=== PATIENT | female | born 1980 | race African-American/Black ===

== ENCOUNTER 2016-11-19 21:40 | Emergency (ER) | payer MEDICAID, OTHER ==
[~2016-11-19] VITALS: Ht 157.5 cm; Wt 75.3 kg
[2016-11-19 22:04] VITALS: BP 147/99
--- NOTE | 2016-11-19 22:19 | Emergency Room Report ---
History of Present Illness General Chief Complaint: Abdominal Pain Source: Patient Present Illness HPI Is a 36-year-old female who is 9, para 3, who is approximately weeks by date. She has confirmation to her Dr. matute. She presents with chief complaint of vomiting. Unable to keep anything down today. No fever or chills. No diarrhea. Vomiting is nonbloody and nonbilious. She went to [facility] but was there for a long period time and signed out AMA. Denies any vaginal bleeding. Blood type is Rh+ so she didn't receive any RhoGAM shot before. Allergies: Coded Allergies: No Known Allergies (Unverified , 11/19/16) Patient History Past Medical History: see triage record, old chart reviewed Past Surgical History: other Pertinent Family History: none Social History: Denies: smoking Last Menstrual Period: 09/18/16 Now: Yes : 4 Para: 3 Immunizations: other Reviewed Nursing Documentation: PMH: Agreed, PSxH: Agreed Review of Systems Eye: Denies: blurred vision, eye pain ENT: Denies: ear pain, nose congestion, throat swelling Respiratory: Denies: cough, shortness of breath Cardiovascular: Denies: chest pain, palpitations Gastrointestinal: Reports: nausea, vomiting, Denies: abdominal pain, diarrhea Musculoskeletal: Denies: back pain, joint pain Skin: Denies: rash Neurological: Denies: headache, numbness Endocrine: Denies: increased thirst, increased urine Hematologic/Lymphatic: Denies: easy bruising All Other Systems: negative except mentioned in HPI Physical Exam Vital Signs Date Time Temp Pulse Resp B/P Pulse Ox O2 Delivery O2 Flow Rate FiO2 11/19/16 21:54 97.5 75 15 147/99 100 Room Air vitals unremarkable Sp02 EP Interpretation: reviewed, normal General Appearance: well appearing, no apparent distress, alert Head: normocephalic, atraumatic Eyes: bilateral eye EOMI, bilateral eye PERRL ENT: hearing grossly normal, normal pharynx Neck: full range of motion, supple, no meningismus Respiratory: chest non-tender, lungs clear, normal breath sounds Cardiovascular #1: regular rate, rhythm, no murmur Gastrointestinal: normal bowel sounds, non tender, no mass, no organomegaly, no bruit, non-distended Musculoskeletal: back normal, gait/station normal, normal range of motion Psychiatric: mood/affect normal Skin: warm/dry Procedures Additional Procedure Procedure Narrative Procedure: IV access Indication: Poor IV access Description: Her IV access infiltrated. She has poor IV access otherwise. Nursing staff unable to get an IV in her. I place an 18-gauge left external jugular IV. It aspirated easily. Flush easily. IV fluid and medication given to this. Patient tolerated procedure without a problem. Medical Decision Making Diagnostic Impression: Primary Impression: Hyperemesis gravidarum Additional Impression: Twin gestation in first trimester Qualified Codes: O30.091 - Twin , unable to determine number of placenta and number of amniotic sacs, first trimester ER Course Patient presents with hyperemesis gravidarum. She arty been to [facility] and had ultrasound her shortly gestation. I confirm that here. Blood work is unremarkable. She is dehydrated. [place] better after fluids and Zofran. No discharge from it better. Lab Results Impression labs unremarkable Last Vital Signs Date Time Temp Pulse Resp B/P Pulse Ox O2 Delivery O2 Flow Rate FiO2 11/19/16 21:54 97.5 75 15 147/99 100 Room Air Status: improved Disposition: HOME, SELF-CARE Condition: Stable Scripts Ondansetron (Zofran) 4 Mg Tablet 4 MG ORAL Q6H Y for Nausea & Vomiting, #30 TAB 0 Refills Prov: COOKIE DUDLEY M.D. 11/20/16 Additional Instructions: Followup with your ROCKET [employer]INE TESTER a week. Return for worsening symptoms or any concern. Eat small frequent meals. COOKIE DUDLEY M.D. Nov 19, 2016 22:19
[2016-11-19] MEDS: D5NS 1,000 ML IV SCH ×2 (22:51→23:16)
[2016-11-19 22:55] LABS: APPEARANCE,URINE CLEAR; KETONES,URINE 3+ (NEGATIVE); LEUKOCYTE ESTERASE ,URINE 1+ (NEGATIVE); NITRITE,URINE NEGATIVE (NEGATIVE); PH,URINE 6.5 (4.5-8.0); PROTEIN,URINE 2+ (NEGATIVE); UROBILINOGEN,URINE NORMAL MG/DL (0.0-1.0)
[2016-11-19 23:13] LABS: BACTERIA,URINE FEW /HPF; RBC,URINE 0-2 /HPF (0 - 2); SQUAMOUS EPITHELIAL CELL,UR FEW /LPF (NONE/OCC)
[2016-11-19 23:13] LABS: BASOPHILS % (AUTO) 0.5 % (0.0-2.0); EOSINOPHILS % (AUTO) 0.1 % (0.0-3.0); MEAN CORPUSCULAR HEMOGLOBIN 31.3 PG (27.0-31.0); MEAN CORPUSCULAR HGB CONC 33.9 G/DL (32.0-36.0); MEAN CORPUSCULAR VOLUME 92 FL (80-99); MEAN PLATELET VOLUME 7.1 FL (6.5-10.1); MONOCYTES % (AUTO) 3.8 % (1.0-10.0); NEUTROPHILS % (AUTO) 84.6 % (45.0-75.0); PLATELET COUNT 248 K/UL (150-450); RED CELL DISTRIBUTION WIDTH 11.4 % (11.6-14.8); WHITE BLOOD COUNT 12.5 K/UL (4.8-10.8)
[2016-11-19 23:21] LABS: ANION GAP 20 (5-15); CALCIUM 9.1 mg/dL (8.6-10.2); CARBON DIOXIDE 18 mEQ/L (20-30); CHLORIDE 91 mEQ/L (98-107); CREATININE 0.7 mg/dL (0.5-0.9); GLOMERULAR FILTRATION RATE > 60 mL/min (>60); HEMOLYSIS 5; POTASSIUM 3.5 mEQ/L (3.4-4.9); SODIUM 129 mEQ/L (135-145)
[2016-11-20] MEDS ORDERED: Morphine Sulfate 4mg/ml Inj IVP ONE (00:15)
[2016-11-20] MEDS: D5NS 1,000 ML IV SCH ×4 (00:17→03:09)
[2016-11-20] MEDS ORDERED: ZOFRAN4 MG ORAL (01:16)
[2016-11-20 03:10] VITALS: BP 143/90
== END 2016-11-20 03:13 | disposition home or self-care (01) ==
LOC: EMR 22:14
DX: O21.0 Mild hyperemesis gravidarum (principal); O30.041 Twin pregnancy, dichorionic/diamniotic, first trimester; Z3A.00 Weeks of gestation of pregnancy not specified
CPT/HCPCS: 36415; 80048; 81001; 84702; 85025; 86850; 86900; 86901; 96360; 96361; 96374; 96375; 99284; J2270; J2405

== ENCOUNTER 2017-02-01 17:42 | Emergency (ER) | payer OTHER ==
[~2017-02-01] VITALS: Ht 157.5 cm; Wt 74.8 kg
[~2017-02-01 17:42] MED LIST: ZOFRAN4 MG ORAL
[2017-02-01] MEDS ORDERED: FOLIC ACID0.4 MG ORAL (17:51)
[2017-02-01] MEDS ORDERED: PRENATAL DHA200 MG PO (17:51)
[2017-02-01] MEDS ORDERED: IRON159 MG PO (17:51)
[2017-02-01 18:00] VITALS: BP 116/72
[2017-02-01] MEDS ORDERED: Ketorolac 30mg Inj IV ONE (18:00)
[2017-02-01] MEDS ORDERED: Metoclopramide 10mg/2ml Inj IVP ONE (18:00)
--- NOTE | 2017-02-01 18:34 | Emergency Room Report ---
History of Present Illness General Chief Complaint: Headache Source: Patient Present Illness HPI 36YOF 19-weeks presents with dizziness and alleged syncope at home, "passed out then slid down the wall." C/o pain to inside of upper lip, left upper forehead. Drank plenty of water today. Denies nausea/vomiting, vaginal bleeding, chest pain, SOB. Allergies: Coded Allergies: No Known Allergies (Unverified , 11/19/16) Patient History Past Medical History: other - Hyperemesis gravidarum Past Surgical History: none Pertinent Family History: none Social History: Denies: alcohol use, drug use, smoking Now: Yes - 19 weeks : 9 Para: 3 Immunizations: UTD Reviewed Nursing Documentation: PMH: Agreed, PSxH: Agreed Nursing Documentation-PMH Hx Cardiac Problems: Yes - TRICUSPID VALVE REPLACEMENT (2002) Review of Systems All Other Systems: negative except mentioned in HPI Physical Exam Vital Signs Date Time Temp Pulse Resp B/P Pulse Ox O2 Delivery O2 Flow Rate FiO2 02/01/17 17:46 98.1 119 16 104/57 99 Room Air Sp02 EP Interpretation: reviewed, abnormal General Appearance: normal inspection, well appearing, no apparent distress, alert, GCS 15, non-toxic Head: normocephalic, atraumatic Eyes: bilateral eye EOMI, bilateral eye PERRL ENT: normal ENT inspection, hearing grossly normal, normal voice, other - Small abrasions upper left inner lip Neck: normal inspection, full range of motion, supple, no bony tend Respiratory: normal inspection, lungs clear, normal breath sounds, no respiratory distress, no retraction, no wheezing Cardiovascular #1: regular rate, rhythm, no edema Gastrointestinal: normal inspection, normal bowel sounds, non tender, soft, no guarding, no hernia Genitourinary: no CVA tenderness Musculoskeletal: normal inspection, back normal, normal range of motion, Anamaria' s Sign negative Neurologic: normal inspection, alert, oriented x3, responsive, cancer genetic counselor III-XII nml as tested, motor strength/tone normal, speech normal Psychiatric: normal inspection, judgement/insight normal, mood/affect normal Skin: normal inspection, normal color, no rash Lymphatic: normal inspection Medical Decision Making Diagnostic Impression: Primary Impression: Syncope and collapse Additional Impression: Blunt head trauma Qualified Codes: S09.8XXA - Other specified injuries of head, initial encounter ER Course Syncope - DDx includes cardiomyopathy, pericarditis, PE - ECG shows sinus tach, RBBB incomplete. Low voltage - Bedside sono, no obvious pericardial effusion - Troponin 0. - CBC pending at time of signout - D-dimer pending - Di/w patient and partner possible need for CT Chest to r/o PE - they will discuss - Endorsed to Dr Lema at 720pm to followup d-dimer, CBC, CT Chest if necessary - Either way, patient warrants admission to tele EKG Diagnostic Results Rate: tachycardiac, other - RBBB Rhythm: NSR ST Segments: no acute changes ASA given to the pt in ED: No Rhythm Strip Diag. Results EP Interpretation: yes Rate: 83 Rhythm: NSR, no PVC's, no ectopy Last Vital Signs Date Time Temp Pulse Resp B/P Pulse Ox O2 Delivery O2 Flow Rate FiO2 02/01/17 17:46 98.1 119 16 104/57 99 Room Air Status: improved Disposition: ADMITTED INPATIENT Condition: Serious Referrals: [facility],REFERRING (PCP) CA LLOYD M.D. Feb 01, 2017 18:34
[2017-02-01 19:00] VITALS: BP 101/68
[2017-02-01 19:05] LABS: TROPONIN I < 0.30 ng/mL (<=0.30)
[2017-02-01 19:08] LABS: CARBON DIOXIDE 19 mEQ/L (20-30); CREATININE 0.8 mg/dL (0.5-0.9)
[2017-02-01 19:09] LABS: ALANINE AMINOTRANSFERASE 14 U/L (3-33); ALBUMIN/GLOBULIN RATIO 1.6 (1.0-2.7); ANION GAP 20 (5-15); ASPARTATE AMINO TRANSFERASE 19 U/L (5-40); CALCIUM 9.1 mg/dL (8.6-10.2); CHLORIDE 98 mEQ/L (98-107); GLOMERULAR FILTRATION RATE > 60 mL/min (>60); HEMOLYSIS 39; POTASSIUM 4.1 mEQ/L (3.4-4.9); SODIUM 137 mEQ/L (135-145); TOTAL PROTEIN 6.2 g/dL (6.6-8.7)
[2017-02-01 19:19] LABS: CKMB 3.1 ng/mL (< 3.8)
[2017-02-01 19:28] LABS: BASOPHILS % (AUTO) 0.9 % (0.0-2.0); EOSINOPHILS % (AUTO) 1.1 % (0.0-3.0); LYMPHOCYTES % (AUTO) 21.4 % (20.0-45.0); MEAN CORPUSCULAR HEMOGLOBIN 36.2 PG (27.0-31.0); MEAN CORPUSCULAR VOLUME 93 FL (80-99); MEAN PLATELET VOLUME 6.8 FL (6.5-10.1); MONOCYTES % (AUTO) 5.8 % (1.0-10.0); NEUTROPHILS % (AUTO) 70.7 % (45.0-75.0); PLATELET COUNT 193 K/UL (150-450); RED BLOOD COUNT 3.52 M/UL (4.20-5.40); RED CELL DISTRIBUTION WIDTH 11.3 % (11.6-14.8); WHITE BLOOD COUNT 8.7 K/UL (4.8-10.8)
[2017-02-01 19:43] LABS: APPEARANCE,URINE SLIGHTLY CLOUDY; KETONES,URINE NEGATIVE (NEGATIVE); LEUKOCYTE ESTERASE ,URINE 2+ (NEGATIVE); NITRITE,URINE POSITIVE (NEGATIVE); PH,URINE 6 (4.5-8.0); PROTEIN,URINE NEGATIVE (NEGATIVE); UROBILINOGEN,URINE NORMAL MG/DL (0.0-1.0)
[2017-02-01 19:51] LABS: BACTERIA,URINE MANY /HPF; SQUAMOUS EPITHELIAL CELL,UR MODERATE /LPF (NONE/OCC)
[2017-02-01 20:30] VITALS: BP 103/65
[2017-02-01 22:55] VITALS: BP 121/69
--- NOTE | 2017-02-02 09:30 | Diagnostic Imaging Report ---
Indication: Dyspnea Technique: Continuous helical transaxial imaging of the chest was obtained from the thoracic inlet to the upper abdomen during rapid intravenous contrast administration. Arterial phase of enhancement obtained. Coronal 2-D reformats were also obtained and maximum intensity projection images in multiple planes. Study obtained in a Siemens sensation [address] Total Dose length Product (DLP): [address] Dose Index Volume (CTDIvol): 12.6, 12.6, 101, 32 mGy Comparison: None Findings: The heart is enlarged. There is a mechanical tricuspid valve present. The right atrium is dilated in particular. The aorta appears normal. There is no evidence of pulmonary embolus. Reasonable opacification of the pulmonary artery is noted. The lungs are essentially clear. There is minimal posterior basilar atelectasis. Metallic structure just over the left side of the abdomen. This appears to be external but creates a moderate amount of artifact obscuring the upper abdomen. Injection was from the left arm. There are collaterals within the mediastinum suggesting some impediment to venous inflow. This could be due to a innominate venous or subclavian venous stenosis, not evaluated well on this exam. Impression: No evidence of pulmonary embolus or aortic dissection or aneurysm. Right atrial enlargement. Evidence of previous tricuspid valve replacement. Posterior basilar atelectasis and/or scarring. Possible central venous stenosis as discussed above. Artifacts as discussed above. The CT scanner at [facility] is accredited by the [employer] and the scans are performed using dose optimization techniques as appropriate to a performed exam including Automatic Exposure control.
[2017-02-04] MEDS ORDERED: KEFLEX500 MG ORAL (14:04)
--- NOTE | 2017-02-09 22:45 | Cardiology Report ---
APPROVED REPORT EKG Measurement Heart [id number] Sinus tachycardia Low voltage QRS Incomplete right bundle branch block Borderline ECG
== END 2017-02-01 22:55 | disposition home or self-care (01) ==
LOC: EMR 18:07 → EDBEDREQ 20:10 → EMR 22:55
DX: O26.92 Pregnancy related conditions, unspecified, second trimester (principal); R55 Syncope and collapse; S09.8XXA Other specified injuries of head, initial encounter; O09.522 Supervision of elderly multigravida, second trimester; Z3A.19 19 weeks gestation of pregnancy; Z95.2 Presence of prosthetic heart valve; I45.10 Unspecified right bundle-branch block; R00.0 Tachycardia, unspecified; W19.XXXA Unspecified fall, initial encounter; Y93.9 Activity, unspecified; Y92.9 Unspecified place or not applicable
CPT/HCPCS: 36415; 71275; 80053; 80300; 81003; 81025; 82550; 82553; 84484; 85025; 85379; 87086; 87181; 93005; 96374; 99285; Q9967

== ENCOUNTER 2018-07-05 20:09 | Emergency (ER) | payer MEDICAID, OTHER ==
[~2018-07-05] VITALS: Ht 154.9 cm; Wt 68.0 kg
[~2018-07-05 20:09] MED LIST changes: +FOLIC ACID0.4 MG ORAL; +IRON159 MG PO; +KEFLEX500 MG ORAL; +PRENATAL DHA200 MG PO
[2018-07-05 20:20] VITALS: BP 144/106
[2018-07-05] MEDS ORDERED: Metoprolol 5mg/5ml Inj IVP ONE (20:30)
[2018-07-05] MEDS ORDERED: Metoclopramide 10mg/2ml Inj IVP ONE (20:30)
--- NOTE | 2018-07-05 21:04 | Emergency Room Report ---
History of Present Illness General Chief Complaint: Nausea, Vomiting, and Diarrhea Source: Patient Present Illness HPI Patient is a 37-year-old female presented after increased nausea and vomiting. Patient reports having multiple episodes of vomiting which occurred throughout the day. Patient had prior history of tricuspid valve replacement surgery. She reports having some episodes of diarrhea. 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 She does not take anticoagulation. She denies any fever. She reports having increased generalized weakness. She does not take medications for blood pressure. Allergies: Coded Allergies: No Known Allergies (Unverified , 11/19/16) Patient History Past Medical History: see triage record Reviewed Nursing Documentation: PMH: Agreed; PSxH: Agreed Nursing Documentation-PMH Hx Cardiac Problems: Yes - tricuspid valve replacement, Review of Systems All Other Systems: negative except mentioned in HPI Physical Exam Vital Signs Date Time Temp Pulse Resp B/P (MAP) Pulse Ox O2 Delivery O2 Flow Rate FiO2 07/05/18 20:12 97.9 73 18 191/117 99 Room Air Sp02 EP Interpretation: reviewed, normal General Appearance: normal inspection, well appearing, no apparent distress, alert, GCS 15 Head: atraumatic ENT: normal ENT inspection, hearing grossly normal, normal voice Neck: normal inspection, full range of motion, supple, no bony tend Respiratory: normal inspection, lungs clear, normal breath sounds, no respiratory distress, no retraction, no wheezing Cardiovascular #1: regular rate, rhythm, no edema Gastrointestinal: normal inspection, normal bowel sounds, non tender, soft, no guarding, no hernia Genitourinary: no CVA tenderness Musculoskeletal: normal inspection, back normal, normal range of motion Neurologic: normal inspection, alert, oriented x3, responsive, international operations manager III-XII nml as tested, speech normal Psychiatric: normal inspection, judgement/insight normal, mood/affect normal Skin: normal inspection, normal color, no rash Medical Decision Making Diagnostic Impression: Primary Impression: Tricuspid valve disorder Additional Impression: Nausea, vomiting, and diarrhea ER Course Patient presented for vomiting. Differential diagnosis included wasn't limited to myocardial infarction, gastroenteritis, marijuana hyperemesis among others.Because of complexity of patient's case laboratory testing and imaging studies were ordered.The patient was given IV Reglan as well as metoprolol. The patient was noted to have improvement in her symptoms. The patient was still pending blood drawn and decided to leave the hospital. The patient was had prior tubal ligation Last Vital Signs Date Time Temp Pulse Resp B/P (MAP) Pulse Ox O2 Delivery O2 Flow Rate FiO2 07/05/18 20:51 71 144/120 07/05/18 20:12 97.9 18 99 Room Air Status: improved Disposition: ELOPED Condition: Unknown Referrals: [facility],REFERRING (PCP) Kaleb Lema MD Jul 05, 2018 21:04
[2018-07-05 21:34] VITALS: BP 144/120
--- NOTE | 2018-07-07 08:25 | Cardiology Report ---
APPROVED REPORT EKG Measurement Heart [id number] Sinus rhythm Non-conducted APC Possible Left atrial enlargement Low voltage QRS Incomplete right bundle branch block Nonspecific ST abnormality Abnormal ECG
== END 2018-07-05 21:34 | disposition left against medical advice (07) ==
LOC: EMR 20:37
DX: I07.9 Rheumatic tricuspid valve disease, unspecified (principal); R11.2 Nausea with vomiting, unspecified; R19.7 Diarrhea, unspecified; Z95.4 Presence of other heart-valve replacement
CPT/HCPCS: 93005; 96361; 96374; 96375; 99284; J2765